=== PATIENT | male | born 1990 | race Caucasian/White ===

== ENCOUNTER 2020-05-31 09:54 | Emergency (ER) | payer BC ==
[2020-05-31] MEDS ORDERED: HYDROcodone/Acetaminophen 5/325 mg Tablet ONE (10:43)
--- NOTE | 2020-05-31 10:55 | CT ---
CT thoracic spine noncontrast: 05/31/2020 HISTORY: 29-year-old male with acute mid back pain. History of prior T4 compression fracture. FINDINGS: There is a prominent left paramedian focal depression of upper endplate of T5 vertebral body, consist ent with an old Schmorl's node, and perhaps associated old focal left upper endplate fracture. The rest of the vertebral body heights are maintained, including T4. There is no acute fracture lucency. There is no hematoma in the anterior or posterior perivertebral spaces. Partial visualization of portion kidney. No scoliosis or exaggerated kyphosis. No significant central spinal canal stenosis or high-grade neural foraminal stenosis. Posterior lung bases are grossly clear, with no pleural effusion. IMPRESSION: 1.) No acute fracture. 2) prominent old Schmorl's node left side of T5 superior endplate 3) horseshoe kidney
== END 2020-05-31 11:24 | disposition home or self-care (01) ==
LOC: ERS 09:54
DX: M54.6 Pain in thoracic spine (principal); F32.9 Major depressive disorder, single episode, unspecified; Z79.899 Other long term (current) drug therapy
CPT/HCPCS: 72128